=== PATIENT | female | born 1985 | race Caucasian/White ===

== ENCOUNTER 2017-11-02 08:00 | Outpatient (CLI) | payer MEDICAID | END 2017-11-02 23:59 | disposition home or self-care (01) | LOC: LAB.R 08:00 | PROVIDERS: ATTEND Registered Nurse | DX: Z36.9 Encounter for antenatal screening, unspecified (principal) | CPT/HCPCS: 87491; 87591 ==

== ENCOUNTER 2017-12-01 10:33 | Outpatient (CLI) | payer MEDICAID ==
[2017-12-01 11:55] LABS: BASOPHILS % (AUTO) 0.3 %; EOSINOPHILS # (AUTO) 0.1 10^3/uL (0.0-0.7); EOSINOPHILS % (AUTO) 0.8 %; HGB - HEMOGLOBIN 12.4 g/dL (12.0-16.0); LYMPHOCYTES # (AUTO) 1.3 10^3/uL (1.5-3.5); LYMPHOCYTES % (AUTO) 18.9 %; MEAN CORPUSCULAR HEMOGLOBIN 31.7 pg (27.0-31.0); MEAN CORPUSCULAR HGB CONC 35.7 g/dL (32.0-36.0); MEAN CORPUSCULAR VOLUME 88.9 fL (81.0-99.0); MEAN PLATELET VOLUME 8.6 fL (7.9-10.8); MONOCYTES # (AUTO) 0.3 10^3/uL (0.0-1.0); MONOCYTES % (AUTO) 4.4 %; NEUTROPHILS # (AUTO) 5.2 10^3/uL (1.5-6.6); NEUTROPHILS % (AUTO) 75.6 %; PLT - PLATELET COUNT 185 10^3/uL (130-450); RED BLOOD COUNT 3.91 10^6/uL (4.20-5.40); WHITE BLOOD COUNT 6.9 x10^3/uL (4.8-10.8)
[2017-12-01 12:02] LABS: BILIRUBIN,URINE NEGATIVE (NEGATIVE); GLUCOSE, URINE (UA) NEGATIVE (NEGATIVE); KETONES,URINE (UA) NEGATIVE (NEGATIVE); LEUKOCYTE ESTERASE, URINE NEGATIVE (NEGATIVE); NITRITE,URINE NEGATIVE (NEGATIVE); OCCULT BLOOD,URINE NEGATIVE (NEGATIVE); PROTEIN,URINE NEGATIVE (NEGATIVE); UROBILINOGEN,URINE 0.2 (NORMAL) E.U./dL (NORMAL)
[2017-12-01 12:07] LABS: CLARITY,URINE CLEAR (CLEAR)
[2017-12-01 12:22] LABS: BACTERIA,URINE Rare /HPF (None Seen); RBC,URINE 0-5 /HPF (0-5); SQUAMOUS EPITHELIAL CELL,UR RARE Squamous (<= Few)
[2017-12-02 13:28] LABS: HEPATITIS B SURFACE ANTIGEN NON-REACTIVE (NON-REACTIVE)
[2017-12-02 13:51] LABS: HIV AG/AB 4TH GEN NON-REACTIVE (NON-REACTIVE)
[2017-12-02 14:07] LABS: HEPATITIS C ANTIBODY NON-REACTIVE (NON-REACTIVE)
== END 2017-12-01 10:34 | disposition home or self-care (01) ==
LOC: LAB 10:33
PROVIDERS: ATTEND Registered Nurse
DX: Z36.0 Encounter for antenatal screening for chromosomal anomalies (principal)
CPT/HCPCS: 36415; 81001; 81599; 85025; 86592; 86762; 86803; 86850; 86900; 86901; 87340; 87389

== ENCOUNTER 2017-12-31 12:02 | Outpatient (CLI) | payer MEDICAID ==
--- NOTE | 2018-01-04 14:15 | Ultrasound Report ---
DETAILED OB EVALUATION ANATOMIC SCREEN: 12/31/2017 COMPARISON: No comparison. INDICATION: Anatomic screen. TECHNIQUE: Transabdominal evaluation of single intrauterine . LAST MENSTRUAL PERIOD 08/07/2017 Clinical Age --- US Age 20 weeks 4 days EFW Had[place] 346 g EFW% Hadlock --- Heart Rate 137 bpm EDC 05/14/2018 US EDC 05/16/2018 BPD [place] 21 weeks 0 days; Mean mm 49.8 HC [place] 20 weeks 4 days; Mean mm 180.9 AC [place] 20 weeks 4 days; Mean mm 153.2 FL [place] 20 weeks 0 days; Mean mm 32.0 Presentation variable Placental Location anterior Cervical Length 5.6 cm Amniotic Fluid 4.7 cm FINDINGS: Normal 3-vessel cord. The following structures are identified and appear normal: Choroid plexus, lateral ventricles, midline falx, cavum septum pellucidum, cisterna magna, cerebellum, nuchal fold, profile - nasal bones, coronal face, nose-lips, open hands, cardiac situs, left and right ventricular outflow tracts , stomach in situs, heart stomach bladder, diaphragm, kidneys, bladder, cord insertion, spine, upper and lower extremities, leg and foot relationships. There is a left ventricular echogenic intracardiac focus. Four chamber heart appears otherwise normal. Maternal structures: Uterus, cervix long and closed, 5.6 cm. Maternal adnexa grossly unremarkable. IMPRESSION 1. SINGLE VIABLE INTRAUTERINE WITH SIZE CONCORDANT WITH DATES. 2. LEFT VENTRICULAR INTRACARDIAC ECHOGENIC FOCUS. 3. ANATOMIC SCREEN OTHERWISE NORMAL IN APPEARANCE. [facility]
== END 2017-12-31 12:03 | disposition home or self-care (01) ==
LOC: DI 12:02
PROVIDERS: ATTEND Nurse Practitioner Obstetrics & Gynecology
DX: Z36.9 Encounter for antenatal screening, unspecified (principal)
CPT/HCPCS: 76811

== ENCOUNTER 2018-02-16 10:37 | Outpatient (CLI) | payer MEDICAID ==
[2018-02-16 12:33] LABS: HGB - HEMOGLOBIN 11.8 g/dL (12.0-16.0); WHITE BLOOD COUNT 7.5 x10^3/uL (4.8-10.8)
[2018-02-16 14:40] LABS: MEAN CORPUSCULAR HEMOGLOBIN 32.1 pg (27.0-31.0); MEAN CORPUSCULAR HGB CONC 34.5 g/dL (32.0-36.0); RED BLOOD COUNT 3.69 10^6/uL (4.20-5.40); RED CELL DISTRIBUTION WIDTH 12.2 % (12.0-15.0)
== END 2018-02-16 10:38 | disposition home or self-care (01) ==
LOC: LAB 10:37
PROVIDERS: ATTEND Nurse Practitioner Obstetrics & Gynecology
DX: Z36.9 Encounter for antenatal screening, unspecified (principal)
CPT/HCPCS: 36415; 82950; 86850

== ENCOUNTER 2018-04-19 08:00 | Outpatient (CLI) | payer MEDICAID | END 2018-04-19 08:01 | disposition home or self-care (01) | LOC: LAB.R 08:00 | PROVIDERS: ATTEND Registered Nurse | DX: Z34.83 Encounter for supervision of other normal pregnancy, third trimester (principal) | CPT/HCPCS: 87797 ==

== ENCOUNTER 2018-05-07 09:39 | Inpatient (IN) | payer MEDICAID ==
[2018-05-07 10:50] LABS: RUPTURE OF MEMBRANES PLUS POSITIVE (NEGATIVE)
[2018-05-07] MEDS ORDERED: SODIUM CHLORIDE FLUSH 0.9% 10 ML SYRINGE IVP PRN (11:15)
[2018-05-07] MEDS ORDERED: PENICILLIN G POTASSIUM 5,000,000 UNIT in SODIUM CHLORIDE 0.9% MINIBAG 100 ML IV ONE (11:15)
[2018-05-07 12:49] LABS: BASOPHILS % (AUTO) 0.4 %; EOSINOPHILS # (AUTO) 0.1 10^3/uL (0.0-0.7); EOSINOPHILS % (AUTO) 0.7 %; HGB - HEMOGLOBIN 11.5 g/dL (12.0-16.0); LYMPHOCYTES # (AUTO) 1.5 10^3/uL (1.5-3.5); LYMPHOCYTES % (AUTO) 19.4 %; MEAN CORPUSCULAR HEMOGLOBIN 31.3 pg (27.0-31.0); MEAN CORPUSCULAR HGB CONC 33.6 g/dL (32.0-36.0); MEAN CORPUSCULAR VOLUME 93.1 fL (81.0-99.0); MEAN PLATELET VOLUME 9.8 fL (7.9-10.8); MONOCYTES # (AUTO) 0.3 10^3/uL (0.0-1.0); MONOCYTES % (AUTO) 3.9 %; NEUTROPHILS % (AUTO) 75.6 %; PLT - PLATELET COUNT 194 10^3/uL (130-450); RED BLOOD COUNT 3.68 10^6/uL (4.20-5.40)
[2018-05-07] MEDS: LACTATED RINGERS 1,000 ML IV SCH ×2 (13:03→19:10)
[2018-05-07] MEDS ORDERED: fentaNYL 100 MCG/2 ML VIAL IVP PRN (13:05)
[2018-05-07] MEDS ORDERED: ONDANSETRON 4 MG/2 ML VIAL IVP PRN ×2 (13:05→19:19)
[2018-05-07] MEDS ORDERED: OXYTOCIN/SODIUM CHLORIDE 250 ML IV ONE ×2 (13:05→21:42)
--- NOTE | 2018-05-07 13:16 | HISTORY & PHYSICAL EXAMINATION ---
Admit History - Instructions [place]/Slash: -Left hand click circles element as positive or present. -Right hand click slashes element as negative or not present. - Visit Reason Visit Reason: Membranes rupture (at 209905/06/2018) - : 2 Parity: 1 Premature: 0 Ectopic: 0 : 0 Care: positive: [facility] (beginning @ 12 weeks' gestation x11 total visits) Risk/History: positive: Other (history of FAVD) Complications This : positive: Other (GBS positive & now w/ PROM) Smoking Status: Never smoker - Mother's Labs Mother's Blood Type: positive: O Mother's RH: positive: Positive GBS: positive: Group B Strep Positive Rubella Status: positive: Immune - Other Maternal History Other Maternal History: PMH: unremarkable PSH: appendectomy 2013 w/o complications OBhx: FAVD 2009, no complications GYNhx: no hx abnormal pap; last 2015, nl per pt; denies hx STI Sochx: unemployed, to [place], denies DV; denies ETOH/drugs/tobacco Famhx: diabetes (father), endometriosis (sister) Meds/Allgy - Allergies Allergies/Adverse Reactions: Allergies Allergy/AdvReac Type Severity Reaction Status Date / Time iodine AdvReac Hives Verified 05/07/18 10:52 Review of Systems - Constitutional Constitutional: denies: Fatigue, Fever, Chills - Eyes Eyes: denies: Blurred vision - Cardiovascular Cariovascular: denies: Irregular heart rate, Palpitations, Chest pain, Edema - Respiratory Respiratory: denies: Cough, Wheezing, Snoring, SOB at rest, SOB with exertion - Gastrointestinal Gastrointestinal: denies: Abdominal pain, Constipation, Diarrhea, Nausea, Vomiting - Genitourinary Genitourinary: reports: Frequency, Urgency, Incontinence. denies: Dysuria - Musculoskeletal Musculoskeletal: denies: Muscle pain, Back pain, Muscle aches - Integumentary Integumentary: denies: Rash, Pruritis, Lesions - Neurological Neurological: denies: General weakness, Focal weakness, Headache - Psychiatric Psychiatric: denies: Depression, Anxiety - All Other Systems All Other Systems: reports: Other (+LOF, clear, beginning @ 209905/06/2018; did not call until 10:00 05/07/2018, found to be ruptured w/ +ROM plus on arrival; no vaginal bleeding; no contraction discomfort; +FM) Physical - Abdominal Exam Vital Signs: Temp Pulse Resp BP Pulse Ox 37.2 C 86 19 115/64 100 05/07/18 10:29 05/07/18 10:29 05/07/18 10:29 05/07/18 10:05/07/18 10:29 Contraction Frequency (min/apart): rare Contraction Intensity: positive: Mild Uterine Resting Tone: positive: Soft - Monitoring Heart Rate Baseline: 130 Strip Review: positive: Category I - Presentation Presentation: positive: Vertex - Vaginal Exam Membranes: positive: Membranes ruptured Dilation (in cm): 2 Effacement (%): 50 Station: positive: -2 (per RN) Cervical Position: positive: Midposition - Speculum Exam Speculum Exam Performed: positive: No Findings: positive: Gross leak, Nitrazine, Other (ROM plus) - Other Notes Labor Progress Note/Additional Text: Juanis Arambula is a 32 y/o who received care beginning in the early 1st trimester & is today 39 weeks' gestation by 1st trimester US. Her has been complicated only by her hx of FAVD & desire for minimal intervention this & her discomfort & GBS positive status. She presented today w/ a complaint of LOF since 2100 05/06/2018; she did not call until >12 hours of ROM this am & her ROM was confirmed w/ positive ROM plus testing. She was hoping to avoid IOL. She is GBS positive & her antibiotic therapy was not initiated until she arrived >12 hours s/p ROM. She is not in labor. She is dasia only occasionally. We reviewed the implications of her PROM & the recommendation for IOL as well as her unfavorable cervical status. We reviewed options for management & Juanis elects buccal misoprostol @ this time. Full PARQ held & pt has no outstanding questions/concerns. PE: GEN: AAOX3, NAD WA GRAVID FEMALE HEENT: GROSSLY NORMOCEPHALIC, ATRAUMATIC W/O CORRECTIVE LENSES RESP: LUNGS B/L CTA T/O CARDIAC: RRR NLS1S2, NO MURMUR ABD: GRAVID, NT; LIE LONGITUDINAL; PRESENTATION CEPHALIC; EFW 8# : NO LESION, GROSS LEAKAGE OF CAF OB: EFM: BL 130BPM, +ACCELS, NO DECELS, MOD EVE; TOCO: RARE UC; SVE PER RN / -2, POSTERIOR MS: FROM T/O, NO DEFORMITY; NO EDEMA SKIN: WARM, WELL-PERFUSED, C/D/I, NO LESION; +TATTOOS NEURO: NO FOCAL DEFICIT PSYCH: NORMAL MOOD & AFFECT, PLEASANTLY CONVERSANT Plan for Labor - Plan For Labor I expect patient to be DC'd or transferred within 96 hours.: Yes Plan for Labor: 1. Admit, cbc/BB hold 2. Begin misoprostol 50mcg BC q 4 hours 3. limit SVE secondary to PROM; reassess only w/ clear clinical change or urgency 4. Begin IV PCN for GBS prophylaxis, q 4 hours per protocol for IPAP 5. Reviewed analgesia/anesthesia & non-pharmacologic pain management options; PARQ nitrous & pt to utilize as desired; hopes to avoid epidural & hopes to avoid IV analgesia, reviewed @ length 6. Reviewed implications of PROM & need for 48-hr pp stay for evaluation 7. Careful assessment of maternal temperature 8. Anticipatory guidance re: labor process, need for IOL, recommendation re: intervention @ this time 9. Reviewed plan of care w/ pt, partner & RN @ bedside; all in agreement, without concerns.
[2018-05-07] MEDS ORDERED: miSOPROStol 100 MCG TABLET BC SCH ×3 (14:00→22:00)
--- NOTE | 2018-05-07 16:32 | PROVIDER PROGRESS NOTE ---
Labor Progress Note - Uterine Monitoring Uterine Monitoring Mode: positive: External toco Contraction Frequency (min/apart): 2-3 Contraction Intensity: positive: Mild to moderate Uterine Resting Tone: positive: Soft - Monitoring Monitor Mode: positive: External ultrasound Heart Rate Baseline: 135bpm Heart Rate Variability: positive: Moderate (6-25 bmp) Accelerations: positive: Present, 15x15 Decelerations: positive: None - Vaginal Exam Dilation (in cm): 4 Effacement (%): 90 Station: -2 (per RN) Cervical Position: Midposition - Labor Progress Note Labor Progress Note/Additional Text: S: Juanis reports mild cramping w/ uterine contractions, obtaining relief w/ use of jacuzzi tub. & daughter @ bedside, involved. Hoping for minimal intervention. Ongoing leakage of CAF. O: AAOx3, NAD WA gravid female VSS: T 37.1 HR 82 BP 110/63 EFM: BL 135bpm, +accels, no decels, mod tony TOCO: UCs q2-3 min x60 seconds, palp mod SVE: 90/-2 per RN A: 32 y/o @ 39 weeks' EGA by first trimester US, PROM 05/06/2018 @ 2100, for a total ruptured duration of 19.5 hours, afebrile GBS positive s/p 2 doses IV PCN for prophylaxis FHTs cat I Cervical change 3 hours s/p single buccal dose of 50mcg misoprostol Adequate pain control w/o anesthesia/analgesia P: 1. Continue GBS prophylaxis w/ IV PCN per protocol 2. 2nd misoprostol dose @ 4 hour meena if contractions less consistent or cervix remains unchanged (pt refusing Pitocin infusion) 3. Continue hydrotherapy/ambulation/position changes, analgesia/anesthesia available per pt request; pt potentially interested in use of nitrous, RN aware 4. Limit SVE to those clinically indicated, given PROM & increased risk of chorio 5. Ongoing careful monitoring of maternal temperature/FHTs
[2018-05-07] MEDS ORDERED: PENICILLIN G POTASSIUM 2,500,000 UNIT in SODIUM CHLORIDE 0.9% 100ML 100 ML IV SCH (17:00)
[2018-05-07] MEDS ORDERED: SODIUM CHLORIDE FLUSH 0.9% 10 ML SYRINGE IVP SCH (17:00)
[2018-05-07] MEDS ORDERED: ROPIVACAINE 0.2% PF 20 ML AMPULE ONE (18:33)
[2018-05-07] MEDS ORDERED: fentaNYL 100 MCG/2 ML VIAL ONE (18:34)
[2018-05-07] MEDS ORDERED: fent/BUPIV 2 MCG/0.125% 250 ML EP ONE (18:34)
[2018-05-07] MEDS ORDERED: diphenhydrAMINE INJ 50 MG/ML VIAL IVP PRN (19:19)
[2018-05-07] MEDS ORDERED: ePHEDrine 50 MG/ML VIAL IVP PRN (19:19)
[2018-05-07] MEDS ORDERED: LACTATED RINGERS 500 ML IV SCH (19:19)
[2018-05-07] MEDS ORDERED: METOCLOPRAMIDE 10 MG/2 ML VIAL IVP PRN (19:19)
[2018-05-07] MEDS ORDERED: NALBUPHINE 10 MG/ML AMP IVP PRN (19:19)
[2018-05-07] MEDS ORDERED: fent/BUPIV 2 MCG/0.125% 250 ML EP PRN (19:19)
[2018-05-07] MEDS ORDERED: NALOXONE 0.4 MG/ML VIAL IVP PRN (19:19)
--- NOTE | 2018-05-07 21:38 | DELIVERY NOTE ---
Delivery Note - Labor Labor: positive: Other (augmented w/ 1 buccal dose of 50mcg misoprostol) - Delivery Method Delivery Method: positive: Spontaneous vaginal delivery - Cervical Ripening Method Cervical Ripening Method: positive: Misoprostil - Presentation Presentation: positive: Vertex, SONAM - right occiput anterior - Nuchal Cord Nuchal Cord: positive: None - Anesthetic Anesthetic Type: - Amniotic Fluid Description Amniotic Fluid Description: positive: Clear (SROM x24 hours, 13 minutes) - Episiotomy Type Episiotomy Type: positive: None - Laceration Laceration: positive: 2nd degree - Suture Suture Type: positive: Vicryl Suture Size: positive: 2-0 - Delivery Outcome Delivery Outcome: positive: Livebirth - : positive: Placed in direct skin contact with mother, Stimulated, Warmed , [place] used [place] sex: positive: Male - Cord Cord: positive: 3 vessels - Placenta Placenta: positive: Intact, Spontaneous - Estimated Blood Loss Estimated Blood Loss (in cc): 500 - Post Delivery Events Post Delivery Events: positive: No post delivery events - Delivery Comments (Free Text/Narrative) Delivery Comments (Free Text/Narrative): Juanis Grant is a 32y/o [id number] who presented w/ PROM for CAF >12 hours s/p rupture. She received PCN for GBS prophylaxis x3 doses over the course of her hospital stay. She received 1 dose of 50mcg buccal misoprostol for augmentation & entered active labor shortly thereafter (4cm @ 1600). She utilized hydrotherapy & nitrous oxide for pain management & elected epidural anesthesia. FHTs monitored electronically t/o & consistently cat I. She progressed steadily to complete dilatation @ 2103, for a total first stage duration of 5 hours, 3 minutes. She pushed w/ spontaneous urge to achieve of viable male in SONAM position over a 2nd degree perineal laceration @ 2113, for a total 2nd stage duration of 10 minutes & a total ruptured duration of 24 hours, 13 minutes. Afebrile t/o labor. Infant vigorous w/ spontaneous, lusty cry. Placed to maternal abd for drying/stim. Apgars 9/9. Delayed cord clamping until cessation of pulsation, then cord clamped x2 by CNM, cut by FOB, 3VC noted, cord blood obtained. Active management of 3rd stage w/ Pitocin in IV fluids. Large gush of blood preceded delivery of placenta & 800mcg misoprostol buccally administered as a result. Placenta del spontaneously & intact, Luiza , @ 2117, for a total 3rd stage duration of 5 minutes. FF @ U. Vagina & perineum inspected & 2nd degree perineal laceration noted. Repaired under epidural anesthesia w/ 2-0 vicryl. Hemostatic & well-approximated. EBL 500mL. Mother & infant stable. Weight pending. Mother reports previously successful experience & intends to breastfeed her son, Jarad. nuzzling @ breast w/in 20 minutes of delivery.
[2018-05-07] MEDS ORDERED: MAGNESIUM HYDROXIDE 2,400 MG/30 ML UDC PO PRN (21:42)
[2018-05-07] MEDS ORDERED: HYDROCORTISONE 1% CREAM 28 GM TUBE PR PRN (21:42)
[2018-05-07] MEDS ORDERED: WITCH HAZEL/GLYCERIN 1 EACH MED..PAD TOP PRN (21:42)
[2018-05-07] MEDS ORDERED: miSOPROStol 200 MCG TABLET SL SCH (21:43)
[2018-05-07] MEDS ORDERED: OXYTOCIN/SODIUM CHLORIDE 500 ML IV ONE (21:53)
[2018-05-07] MEDS ORDERED: LACTATED RINGERS 1,000 ML IV ONE ×2 (22:06→22:51)
[2018-05-07] MEDS: ACETAMINOPHEN 500 MG TABLET PO SCH (22:14)
--- NOTE | 2018-05-07 22:15 | PROVIDER PROGRESS NOTE ---
Subjective - Prog Note Date Prog Note Date: 05/07/18 Prog Note Time: 22:15 - Subjective Pt reports feeling: Worse (Feeling "odd") Objective - Vital Signs/Intake & Output Reviewed Vital Signs: Yes Intake & Output: Intake & Output 05/04/18 05/05/18 05/06/18 05/07/18 23:59 23:59 23:59 23:59 Intake Total 1117.5 Output Total 1050 Balance 67.5 - Objective General Appearance: positive: Alert, Moderate distress, Anxious Eyes Bilateral: positive: Normal inspection, PERRL, EOMI ENT: positive: Other (se-oral cyanosis) Respiratory: positive: Chest non-tender, No respiratory distress, Breath sounds nml. negative: Wheezes, Rales, Rhonchi Cardiovascular: positive: No murmur, No gallop, Tachycardia. negative: Friction rub Peripheral Pulses: 2+ Radial (R), 2+ Radial (L), 2+ Dorsalis pedis (R), 2+ Dorsalis pedis (L), 2+ Posterior tibialis (R), 2+ Posterior tibialis (L) Abdomen: positive: Non-tender, Other (FF @ U) Skin: positive: Cyanosis (se-oral), Pallor Neurologic/Psychiatric: positive: Oriented x3, CN's nml (2-12), Motor nml, Sensation nml, Mood/affect nml, Other (anxiety) - Lab Results Fish Bones: 05/07/18 12:32 Other Labs: Lab Results x24hrs 05/07/18 05/07/18 Range/Units 12:32 10:20 WBC 8.0 (4.8-10.8) x10^3/uL RBC 3.68 L (4.20-5.40) 10^6/uL Hgb 11.5 L (12.0-16.0) g/dL Hct 34.2 L (37.0-47.0) % MCV 93.1 (81.0-99.0) fL MCH 31.3 H (27.0-31.0) pg MCHC 33.6 (32.0-36.0) g/dL RDW 13.0 (12.0-15.0) % Plt Count 194 (130-450) 10^3/uL MPV 9.8 (7.9-10.8) fL Neut # (Auto) 6.0 (1.5-6.6) 10^3/uL Lymph # (Auto) 1.5 (1.5-3.5) 10^3/uL [place] # (Auto) 0.3 (0.0-1.0) 10^3/uL Eos # (Auto) 0.1 (0.0-0.7) 10^3/uL Baso # (Auto) 0.0 (0.0-0.1) 10^3/uL Absolute Nucleated RBC 0.01 x10^3/uL Nucleated RBC % 0.1 /100WBC Membranes Rupture POSITIVE A (NEGATIVE) Assessment/Plan - Problem List (1) (normal spontaneous vaginal delivery) Impression: Called to see patient secondary to sudden desaturation to SPO2 70% w/ BP 80s/ 30s & HR 130bpm s/p w/ sudden EBL 500mL w/ delivery of placenta. Patient stable s/p 1 dose 800mcg buccal misoprostol, holding infant w/ sudden decompensation of vital signs, now with intense rigors & inability to determine accurate BP secondary to severe rigors. Pt alert & appropriately responsive, denies SOB, denies CP, feeling very anxious. PE notable only for se-oral cyanosis & pallor, lungs b/l cta t/o; tachycardia but regular rhythm, no murmur/ gallop/rub; peripheral pulses +2, minimal b/l LE edema; FF @ U, GUILLE firm & clear of clot, minimal lochia rubra. No change in patient's LOC. 1. Reviewed possible/probable etiologies of symptoms, discussed w/ anesthesia, who presented to the bedside for evaluation of patient 2. demerol 12.5mg IVP to decrease rigors, which are likely secondary to adverse effect of misoprostol administration in order to ensure accuracy of BP evaluation 3. Chest CT to r/o PE 4. ABG/CBC/CMP stat 5. Luiza hugger & antipyretics to diminish rigors & allow for accuracy of BP assessment 6. Ongoing O2 administration via non-rebreather mask, ongoing IV bolus LR 7. Ongoing careful evaluation of vaginal bleeding, which @ present is negligible 8. Reviewed clinical scenario w/ Raiza Light CRNA, & Zarina Fritz DO, who concur w/ current plan of care
[2018-05-07] MEDS ORDERED: MEPERIDINE 50 MG/ML SYRINGE IVP PRN (22:18)
[2018-05-07 22:23] LABS: BASOPHILS % (AUTO) 0.1 %; EOSINOPHILS % (AUTO) 0.1 %; HGB - HEMOGLOBIN 12.2 g/dL (12.0-16.0); LYMPHOCYTES % (AUTO) 7.2 %; MEAN CORPUSCULAR HGB CONC 32.3 g/dL (32.0-36.0); MEAN CORPUSCULAR VOLUME 95.9 fL (81.0-99.0); MEAN PLATELET VOLUME 9.6 fL (7.9-10.8); MONOCYTES % (AUTO) 3.5 %; NEUTROPHILS % (AUTO) 89.1 %; PLT - PLATELET COUNT 232 10^3/uL (130-450); RED BLOOD COUNT 3.92 10^6/uL (4.20-5.40)
[2018-05-07 22:25] LABS: ABNORMAL LYMPHS % (MANUAL) 0 %
[2018-05-07] MEDS ORDERED: MEPERIDINE 50 MG/ML SYRINGE ONE (22:28)
[2018-05-07 22:38] LABS: ALBUMIN 3.1 g/dL (3.2-5.5); ALBUMIN/GLOBULIN RATIO 0.8 (1.0-2.2); BILIRUBIN,TOTAL 0.9 mg/dL (0.2-1.0); CALCIUM 8.8 mg/dL (8.5-10.3); CREATININE 0.9 mg/dL (0.4-1.0); TOTAL PROTEIN 7.1 g/dL (6.7-8.2)
[2018-05-07 22:39] LABS: BAND NEUTROPHILS % (MANUAL) 4 %; DIFFERENTIAL COMMENT MANUAL DIFFERENTIAL; LYMPHOCYTES # (MANUAL) 1.6 10^3/uL (1.5-3.5); LYMPHOCYTES % (MANUAL) 7 %; MONOCYTES # (MANUAL) 0.9 10^3/uL (0.0-1.0); NEUTROPHILS # (MANUAL) 20.5 10^3/uL (1.5-6.6); NEUTROPHILS % (MANUAL) 85 %; PLATELET ESTIMATE, MANUAL NORMAL (130-450,000) (NORMAL); PLATELET MORPHOLOGY NORMAL APPEARANCE (NORMAL); RBC MORPHOLOGY (MULTIPLE) NORMAL APPEARANCE (NORMAL)
--- NOTE | 2018-05-07 22:54 | PROVIDER PROGRESS NOTE ---
Subjective - Prog Note Date Prog Note Date: 05/07/18 Prog Note Time: 23:00 - Subjective Pt reports feeling: Improved Subjective: Juanis denies pain or SOB. No dyspnea. She is breathing w/o difficulty on RA. She no longer feels anxious, although she continues to have some rigors. She does report that she feels significantly warmer than she did before. Objective - Vital Signs/Intake & Output Reviewed Vital Signs: Yes Vital Signs: T 100.5 po w/ Luiza hugger in place (s/p misoprostol administration); HR 112bpm, RR 20, BP 129/63 Intake & Output: Intake & Output 05/04/18 05/05/18 05/06/18 05/07/18 23:59 23:59 23:59 23:59 Intake Total 1117.5 Output Total 1050 Balance 67.5 - Objective General Appearance: positive: No acute distress, Alert Eyes Bilateral: positive: Normal inspection, PERRL, EOMI Respiratory: positive: Chest non-tender, No respiratory distress, Breath sounds nml. negative: Wheezes, Rales, Rhonchi Cardiovascular: positive: Tachycardia, Other (regular rhythm). negative: No murmur, No gallop, Friction rub Peripheral Pulses: 2+ Radial (R), 2+ Radial (L), 2+ Dorsalis pedis (R), 2+ Dorsalis pedis (L) Abdomen: positive: Non-tender, Other (FF @ U) Skin: positive: Color nml, No rash, Warm, Dry. negative: Cyanosis, Diaphoresis Extremities: positive: Non-tender, Full ROM, Nml appearance, Pedal edema (trace , non-pitting) Neurologic/Psychiatric: positive: Oriented x3, CN's nml (2-12), Motor nml, Sensation nml, Mood/affect nml - Lab Results Fish Bones: 05/07/18 12:32 05/07/18 10:15 Other Labs: Lab Results x24hrs 05/07/18 05/07/18 05/07/18 Range/Units 12:32 10:20 10:15 WBC 8.0 (4.8-10.8) x10^3/uL RBC 3.68 L (4.20-5.40) 10^6/uL Hgb 11.5 L (12.0-16.0) g/dL Hct 34.2 L (37.0-47.0) % MCV 93.1 (81.0-99.0) fL MCH 31.3 H (27.0-31.0) pg MCHC 33.6 (32.0-36.0) g/dL RDW 13.0 (12.0-15.0) % Plt Count 194 (130-450) 10^3/uL MPV 9.8 (7.9-10.8) fL Neut # (Auto) 6.0 Lymph # (Auto) 1.5 [place] # (Auto) 0.3 Eos # (Auto) 0.1 Baso # (Auto) 0.0 Absolute Nucleated RBC 0.01 Total Counted Band Neuts % (Manual) (0 - 10) % Abnorm Lymph % (Manual) % Nucleated RBC % 0.1 Neutrophils # (Manual) (1.5-6.6) 10^3/uL Lymphocytes # (Manual) (1.5-3.5) 10^3/uL Monocytes # (Manual) (0.0-1.0) 10^3/uL Eosinophils # (Manual) (0-0.7) 10^3/uL Basophils # (Manual) (0-0.1) 10^3/uL Differential Comment Manual Slide Review WBC Morphology (NORMAL) Platelet Estimate (NORMAL) Platelet Morphology (NORMAL) RBC Morph Micro Appear (NORMAL) Sodium 135 (135-145) mmol/L Potassium 4.1 (3.5-5.0) mmol/L Chloride 102 (101-111) mmol/L Carbon Dioxide 19 L (21-32) mmol/L Anion Gap 14.0 H (6-13) BUN 9 (6-20) mg/dL Creatinine 0.9 (0.4-1.0) mg/dL Estimated GFR (MDRD) 72 L (>89) Glucose 104 H (70-100) mg/dL Calcium 8.8 (8.5-10.3) mg/dL Total Bilirubin 0.9 (0.2-1.0) mg/dL AST 37 (10-42) IU/L ALT 27 (10-60) IU/L Alkaline Phosphatase 181 H (42-121) IU/L Total Protein 7.1 (6.7-8.2) g/dL Albumin 3.1 L (3.2-5.5) g/dL Globulin 4.0 (2.1-4.2) g/dL Albumin/Globulin Ratio 0.8 L (1.0-2.2) Membranes Rupture POSITIVE A (NEGATIVE) 05/07/18 Range/Units 10:15 WBC 23.0 H (4.8-10.8) x10^3/uL RBC 3.92 L (4.20-5.40) 10^6/uL Hgb 12.2 (12.0-16.0) g/dL Hct 37.6 (37.0-47.0) % MCV 95.9 (81.0-99.0) fL MCH 31.0 (27.0-31.0) pg MCHC 32.3 (32.0-36.0) g/dL RDW 13.0 (12.0-15.0) % Plt Count 232 (130-450) 10^3/uL MPV 9.6 (7.9-10.8) fL Neut # (Auto) Not Reportable Lymph # (Auto) Not Reportable [place] # (Auto) Not Reportable Eos # (Auto) Not Reportable Baso # (Auto) Not Reportable Absolute Nucleated RBC Not Reportable Total Counted 100 Band Neuts % (Manual) 4 (0 - 10) % Abnorm Lymph % (Manual) 0 % Nucleated RBC % Not Reportable Neutrophils # (Manual) 20.5 H (1.5-6.6) 10^3/uL Lymphocytes # (Manual) 1.6 (1.5-3.5) 10^3/uL Monocytes # (Manual) 0.9 (0.0-1.0) 10^3/uL Eosinophils # (Manual) 0.0 (0-0.7) 10^3/uL Basophils # (Manual) 0.0 (0-0.1) 10^3/uL Differential Comment MANUAL DIFFERENTIAL Manual Slide Review Indicated WBC Morphology NORMAL APPEARANCE (NORMAL) Platelet Estimate NORMAL (130-450,000) (NORMAL) Platelet Morphology NORMAL APPEARANCE (NORMAL) RBC Morph Micro Appear NORMAL APPEARANCE (NORMAL) Sodium (135-145) mmol/L Potassium (3.5-5.0) mmol/L Chloride (101-111) mmol/L Carbon Dioxide (21-32) mmol/L Anion Gap (6-13) BUN (6-20) mg/dL Creatinine (0.4-1.0) mg/dL Estimated GFR (MDRD) (>89) Glucose (70-100) mg/dL Calcium (8.5-10.3) mg/dL Total Bilirubin (0.2-1.0) mg/dL AST (10-42) IU/L ALT (10-60) IU/L Alkaline Phosphatase (42-121) IU/L Total Protein (6.7-8.2) g/dL Albumin (3.2-5.5) g/dL Globulin (2.1-4.2) g/dL Albumin/Globulin Ratio (1.0-2.2) Membranes Rupture (NEGATIVE) - Diagnostic Imaging Diagnostic Imaging Results: positive: Other (chest angiography for PE study ordered stat; spoke w/ Javier--radiologist rehabilitation physician to call stat report to my number) Diagnostic Imaging Comments: pending - Other Results/Comments Other Results/Comments: RT unable to obtain ABG Assessment/Plan - Problem List (2) Oxygen desaturation Impression: SPO2 resolved & now 100% on RA VS stabilizing Febrile w/ leukocystosis, PROM >24 hours, s/p misoprostol administration CBC/CMP otherwise unremarkable Clinical picture improving P: 1. Chest angiography for PE workup--discussed w/ Javier radiologist--they are to call stat report directly to me 2. unable to obtain ABG, will cx for now, given degree of improvement 3. Ongoing careful VS monitoring 4. Ongoing maintenance fluids @ 150mL/hr; establish second large-bore IV access site for angiography 5. Treat as per ACOG guidelines for presumed triple I, given maternal tachycardia, fever, leukocytosis: will begin ampicillin 2g q 6 hours x24 hours and gentamicin 5mg/kg x1; blood cx of limited utility secondary to IV abx therapy t/o the day today; placental pathology pending 6. Reviewed plan of care with patient, partner & RN @ bedside; Dr. Catrina DO, apprised of clinical scenario & plan 7. Anticipate minimum 48-hr s/p delivery hospital stay
[2018-05-07] MEDS: IBUPROFEN 800 MG TABLET PO SCH (23:01)
[2018-05-07] MEDS ORDERED: SODIUM CHLORIDE FLUSH 0.9% 10 ML SYRINGE ONE (23:08)
[2018-05-08] MEDS: AMPICILLIN 2 GM in SODIUM CHLORIDE 0.9% MINIBAG 100 ML IV SCH ×6 (00:20→23:48)
[2018-05-08] MEDS ORDERED: SODIUM CHLORIDE 0.9% MINIBAG 100 ML IV ONE (00:27)
[2018-05-08] MEDS: SODIUM CHLORIDE 0.9% IV SCH (01:24)
[2018-05-08] MEDS: GENTAMICIN IV SCH (01:24)
[2018-05-08] MEDS: LACTATED RINGERS 1,000 ML IV SCH ×3 (01:24→11:13)
--- NOTE | 2018-05-08 02:29 | CT Report ---
Procedure Date: 05/08/2018 Accession Number: [id number] / [id number] Procedure: CT - Chest W/O CPT Code: FULL RESULT: EXAM: CT CHEST EXAM DATE: 05/08/2018 12:12 AM. CLINICAL HISTORY: Dyspnea w/ oxygen desaturation. COMPARISONS: None. TECHNIQUE: Routine helical CT imaging was performed through the chest. IV contrast: None. Reconstructions: Coronal and sagittal. In accordance with CT protocol optimization, one or more of the following dose reduction techniques were utilized for this exam: automated exposure control, adjustment of mA and/or KV based on patient size, or use of iterative reconstructive technique. FINDINGS: Lungs/Pleura: No alveolar consolidation or pleural effusion seen. No pneumothorax. Mediastinum: Heart size is normal. No lymphadenopathy seen. No mediastinal hematoma. Bones: Unremarkable. Visualized Abdomen: The kidneys are partially imaged. Mild hydronephrosis suspected bilaterally. Other: None. IMPRESSION: 1. No acute abnormality seen in the chest. 2. Suspect mild bilateral hydronephrosis. RADIA
[2018-05-08] MEDS: IBUPROFEN 800 MG TABLET PO SCH ×4 (03:15→23:47)
[2018-05-08] MEDS: ACETAMINOPHEN 500 MG TABLET PO SCH ×3 (05:34→21:39)
[2018-05-08] MEDS: DOCUSATE SODIUM 100 MG CAPSULE PO SCH ×2 (10:03→23:47)
[2018-05-08] MEDS: HYDROCORTISONE/PRAMOXINE 10 GM PR PRN (11:58)
--- NOTE | 2018-05-08 12:30 | PROVIDER PROGRESS NOTE ---
Subjective - Prog Note Date Prog Note Date: 05/08/18 Prog Note Time: 12:25 - Subjective Pt reports feeling: Improved Subjective: Juanis reports no dyspnea or SOB. She does not have anxiety this morning. She feels her temperature has regulated well. She is ambulating & voiding w/o difficulty & w/o incontinence. She has had a BM w/o difficulty. She reports moderate lochia rubra w/o significant clotting. She denies discomfort w/ dorsiflexion of her feet & has no CP. She reports increased abdominal pain & cramping & reports that pumping her breasts feels agonizing because of her uterine discomfort. She reports fundal checks are also excruciating for her. She requests additional pain medication. Objective - Vital Signs/Intake & Output Reviewed Vital Signs: Yes Vital Signs: Vital Signs x48h Temp Pulse Pulse Resp BP BP Pulse Ox 05/08/18 11:53 36.4 C L 51 L 19 113/71 100 05/08/18 09:40 36.6 C 69 17 114/64 100 05/08/18 07:45 36.4 C L 68 18 115/76 100 05/08/18 06:34 37.0 C 74 16 105/52 L 97 05/08/18 05:01 78 105/52 L 05/08/18 04:47 87 107/48 L 05/08/18 04:30 37.9 C H 76 20 118/56 L 99 Intake & Output: Intake & Output 05/05/18 05/06/18 05/07/18 05/08/18 23:59 23:59 23:59 23:59 Intake Total 1117.5 1694.9 Output Total 2225 1725 Balance -1107.5 -30.1 - Objective General Appearance: positive: No acute distress, Alert Eyes Bilateral: positive: Normal inspection, PERRL, EOMI Respiratory: positive: Chest non-tender, No respiratory distress, Breath sounds nml Cardiovascular: positive: Regular rate & rhythm, No murmur, No gallop Peripheral Pulses: 2+ Radial (R), 2+ Radial (L), 2+ Dorsalis pedis (R), 2+ Dorsalis pedis (L) Abdomen: positive: Tenderness (fundus exquisitely tender w/ palpation, FF @ U) Skin: positive: Color nml, No rash, Warm, Dry. negative: Cyanosis, Pallor Extremities: positive: Non-tender, Full ROM, Nml appearance, Pedal edema (trace b/l). negative: Calf tenderness, Kory's sign/cords Neurologic/Psychiatric: positive: Oriented x3, CN's nml (2-12), Motor nml, Sensation nml, Mood/affect nml - Lab Results Fish Bones: 05/07/18 22:15 05/07/18 22:15 Other Labs: Lab Results x24hrs 05/07/18 05/07/18 05/07/18 Range/Units 22:15 22:15 12:32 WBC 23.0 H 8.0 (4.8-10.8) x10^3/uL RBC 3.92 L 3.68 L (4.20-5.40) 10^6/uL Hgb 12.2 11.5 L (12.0-16.0) g/dL Hct 37.6 34.2 L (37.0-47.0) % MCV 95.9 93.1 (81.0-99.0) fL MCH 31.0 31.3 H (27.0-31.0) pg MCHC 32.3 33.6 (32.0-36.0) g/dL RDW 13.0 13.0 (12.0-15.0) % Plt Count 232 194 (130-450) 10^3/uL MPV 9.6 9.8 (7.9-10.8) fL Neut # (Auto) 6.0 Lymph # (Auto) 1.5 [place] # (Auto) 0.3 Eos # (Auto) 0.1 Baso # (Auto) 0.0 Absolute Nucleated RBC 0.01 Total Counted 100 Band Neuts % (Manual) 4 (0 - 10) % Abnorm Lymph % (Manual) 0 % Nucleated RBC % 0.1 Neutrophils # (Manual) 20.5 H (1.5-6.6) 10^3/uL Lymphocytes # (Manual) 1.6 (1.5-3.5) 10^3/uL Monocytes # (Manual) 0.9 (0.0-1.0) 10^3/uL Eosinophils # (Manual) 0.0 (0-0.7) 10^3/uL Basophils # (Manual) 0.0 (0-0.1) 10^3/uL Differential Comment MANUAL DIFFERENTIAL Manual Slide Review Indicated WBC Morphology NORMAL APPEARANCE (NORMAL) Platelet Estimate NORMAL (130-450,000) (NORMAL) Platelet Morphology NORMAL APPEARANCE (NORMAL) RBC Morph Micro Appear NORMAL APPEARANCE (NORMAL) Sodium 135 (135-145) mmol/L Potassium 4.1 (3.5-5.0) mmol/L Chloride 102 (101-111) mmol/L Carbon Dioxide 19 L (21-32) mmol/L Anion Gap 14.0 H (6-13) BUN 9 (6-20) mg/dL Creatinine 0.9 (0.4-1.0) mg/dL Estimated GFR (MDRD) 72 L (>89) Glucose 104 H (70-100) mg/dL Calcium 8.8 (8.5-10.3) mg/dL Total Bilirubin 0.9 (0.2-1.0) mg/dL AST 37 (10-42) IU/L ALT 27 (10-60) IU/L Alkaline Phosphatase 181 H (42-121) IU/L Total Protein 7.1 (6.7-8.2) g/dL Albumin 3.1 L (3.2-5.5) g/dL Globulin 4.0 (2.1-4.2) g/dL Albumin/Globulin Ratio 0.8 L (1.0-2.2) /20/18 Range/Units 10:15 WBC (4.8-10.8) x10^3/uL RBC (4.20-5.40) 10^6/uL Hgb (12.0-16.0) g/dL Hct (37.0-47.0) % MCV (81.0-99.0) fL MCH (27.0-31.0) pg MCHC (32.0-36.0) g/dL RDW (12.0-15.0) % Plt Count (130-450) 10^3/uL MPV (7.9-10.8) fL Neut # (Auto) Not Reportable Lymph # (Auto) Not Reportable [place] # (Auto) Not Reportable Eos # (Auto) Not Reportable Baso # (Auto) Not Reportable Absolute Nucleated RBC Not Reportable Total Counted Band Neuts % (Manual) (0 - 10) % Abnorm Lymph % (Manual) % Nucleated RBC % Not Reportable Neutrophils # (Manual) (1.5-6.6) 10^3/uL Lymphocytes # (Manual) (1.5-3.5) 10^3/uL Monocytes # (Manual) (0.0-1.0) 10^3/uL Eosinophils # (Manual) (0-0.7) 10^3/uL Basophils # (Manual) (0-0.1) 10^3/uL Differential Comment Manual Slide Review WBC Morphology (NORMAL) Platelet Estimate (NORMAL) Platelet Morphology (NORMAL) RBC Morph Micro Appear (NORMAL) Sodium (135-145) mmol/L Potassium (3.5-5.0) mmol/L Chloride (101-111) mmol/L Carbon Dioxide (21-32) mmol/L Anion Gap (6-13) BUN (6-20) mg/dL Creatinine (0.4-1.0) mg/dL Estimated GFR (MDRD) (>89) Glucose (70-100) mg/dL Calcium (8.5-10.3) mg/dL Total Bilirubin (0.2-1.0) mg/dL AST (10-42) IU/L ALT (10-60) IU/L Alkaline Phosphatase (42-121) IU/L Total Protein (6.7-8.2) g/dL Albumin (3.2-5.5) g/dL Globulin (2.1-4.2) g/dL Albumin/Globulin Ratio (1.0-2.2) - Diagnostic Imaging Diagnostic Imaging Results: positive: Final report reviewed Diagnostic Imaging Comments: Chest CT WNL, does not demonstrate any pulmonary pathology ABX Reporting Has patient been on IV antibiotics over the past 48 hours?: Yes Assessment/Plan - Problem List (1) (normal spontaneous vaginal delivery) Impression: 32 y/o s/p 7/20 w/ 2nd degree perineal laceration w/ repair, s/p PROM x24 hours, GBS positive w/ antibiotic initiation delayed secondary to pt non- presentation >13 hours s/p ROM Leukocytosis PPD #1 w/ normal uterine involution Inadequate pain management w/ non-opioid analgesia w/ some challenges secondary to infant sleepiness VS previously concerning secondary to oxygen desaturation, tachycardia & hypotension, now consistently WNL, afebrile Broad-spectrum antibiotic therapy initiated s/p delivery secondary to concerns re: maternal sepsis Plan: 1. Continue routine pp care 2. Add oxycodone 5mg po q 4 hrs PRN severe pain 3. Repeat CBC to ensure no persistent or worsening leukocytosis 4. Continue Amp/Gent x24 hours 5. blood cx pending, placental pathology pending 6. Continue frequent VS evaluations 7. Reviewed warning s/sx w/ pt & probable etiology of her previous symptoms as well as need for ongoing intervention/evaluation 8. support provided & to continue in ongoing fashion 9. Anticipate hospital stay through 48 hours s/p delivery @ minimum (2) Oxygen desaturation Impression: Resolved w/ no evidence of PE, no dyspnea, no SOB
[2018-05-08 13:06] LABS: BASOPHILS % (AUTO) 0.2 %; EOSINOPHILS % (AUTO) 0.2 %; HGB - HEMOGLOBIN 11.7 g/dL (12.0-16.0); LYMPHOCYTES % (AUTO) 17.6 %; MEAN CORPUSCULAR HEMOGLOBIN 31.4 pg (27.0-31.0); MEAN CORPUSCULAR HGB CONC 33.7 g/dL (32.0-36.0); MEAN PLATELET VOLUME 9.5 fL (7.9-10.8); MONOCYTES # (AUTO) 0.6 10^3/uL (0.0-1.0); MONOCYTES % (AUTO) 5.4 %; NEUTROPHILS # (AUTO) 8.8 10^3/uL (1.5-6.6); NEUTROPHILS % (AUTO) 76.6 %; PLT - PLATELET COUNT 180 10^3/uL (130-450); RED BLOOD COUNT 3.72 10^6/uL (4.20-5.40); RED CELL DISTRIBUTION WIDTH 12.8 % (12.0-15.0); WHITE BLOOD COUNT 11.5 x10^3/uL (4.8-10.8)
[2018-05-08] MEDS: oxyCODONE 5 MG TABLET PO PRN ×3 (13:10→21:39)
[2018-05-08] MEDS ORDERED: miSOPROStol 200 MCG TABLET ONE (19:54)
[2018-05-09] MEDS: SODIUM CHLORIDE 0.9% IV SCH (01:09)
[2018-05-09] MEDS: GENTAMICIN IV SCH (01:09)
[2018-05-09] MEDS: AMPICILLIN 2 GM in SODIUM CHLORIDE 0.9% MINIBAG 100 ML IV SCH ×2 (05:54→12:46)
[2018-05-09] MEDS: ACETAMINOPHEN 500 MG TABLET PO SCH ×3 (05:56→22:02)
[2018-05-09] MEDS: IBUPROFEN 800 MG TABLET PO SCH ×3 (05:57→18:43)
[2018-05-09] MEDS: DOCUSATE SODIUM 100 MG CAPSULE PO SCH ×2 (09:14→20:44)
[2018-05-09] MEDS ORDERED: SODIUM CHLORIDE FLUSH 0.9% 10 ML SYRINGE ONE ×2 (12:52→14:08)
--- NOTE | 2018-05-09 16:43 | PROVIDER PROGRESS NOTE ---
Subjective - Prog Note Date Prog Note Date: 05/09/18 Prog Note Time: 16:30 - Subjective Pt reports feeling: Improved Subjective: Juanis is doing well. Her pain is much better controlled w/ the addition of oxycodone PRN & she feels that she is having less pain overall. She is ambulating & voiding w/o difficulty. She is passing flatus & tolerating po intake. She is w/ some nipple discomfort. Her mood is good & she is feeling generally significantly better. She denies dyspnea/SOB/anxiety. She has had no fever/chills. She does not plan to contracept & does not plan to return to work. She has a hx of anxiety & depression w/ some pp depression s/ p delivery of her daughter but declines prophylaxis. Objective - Vital Signs/Intake & Output Reviewed Vital Signs: Yes Vital Signs: Vital Signs x48h Temp Pulse Resp BP Pulse Ox 05/09/18 12:48 36.7 C 63 18 107/68 05/09/18 11:05 36.8 C 62 15 114/66 99 Intake & Output: Intake & Output 05/06/18 05/07/18 05/08/18 05/09/18 23:59 23:59 23:59 23:59 Intake Total 1117.5 2894.9 680 Output Total 2225 4175 Balance -1107.5 -1280.1 680 - Objective General Appearance: positive: No acute distress, Alert Eyes Bilateral: positive: Normal inspection, PERRL, EOMI Respiratory: positive: Chest non-tender, No respiratory distress, Breath sounds nml Cardiovascular: positive: Regular rate & rhythm, No murmur, No gallop Abdomen: positive: Non-tender, Other (FF U-1) Skin: positive: Color nml, No rash, Warm, Dry. negative: Cyanosis Extremities: positive: Non-tender, Full ROM, Nml appearance, No pedal edema. negative: Calf tenderness, Kory's sign/cords Neurologic/Psychiatric: positive: Oriented x3, CN's nml (2-12), Motor nml, Sensation nml, Mood/affect nml Comments/Other: Breasts b/l s, nt; nipples b/l intact & everted, colostrum readily expressible; perineum w/ sutures intact, well-approximated, no erythema/edema/ecchymosis; minimal lochia rubra - Lab Results Fish Bones: 05/08/18 13:00 05/07/18 22:15 ABX Reporting Has patient been on IV antibiotics over the past 48 hours?: Yes Assessment/Plan - Problem List (1) (normal spontaneous vaginal delivery) Impression: 32 y/o s/p 05/07 w/ 2nd degree laceration s/p episode of oxygen desaturation & respiratory distress, no evidence of pulmonary pathology, presumed sepsis, s/p abx therapy w/ resolution of leukocytosis, VSS, afebrile x>24 hours w/ some nipple discomfort normal uterine involution minimal lochia rubra pain well-controlled w/ oxycodone & ibuprofen/acetaminophen hx pp depression Plan: 1. continue routine care 2. support provided & to continue in ongoing fashion 3. fluconazole 100mg IV x1 now, then d/c IV--PARQ held, reviewed indication-- prophylaxis w/ prolonged IV broad-spectrum abx, pt desires 4. kpad to hips PRN discomfort, as pt articulates some intermittent hip discomfort 5. Blood cx still pending 6. Reviewed likely etiology of immediate pp respiratory distress & warning s/sx 7. Reviewed pp depression prophylaxis, which pt declines, reviewed warning s/sx , prevention strategies 8. Anticipate d/c home PPD#3 if stable (2) Oxygen desaturation Impression: Resolved
[2018-05-09] MEDS: oxyCODONE 5 MG TABLET PO PRN (16:55)
[2018-05-09] MEDS: FLUCONAZOLE 200 MG/100 ML 100 ML IV SCH (17:44)
[2018-05-10] MEDS ORDERED: SODIUM CHLORIDE FLUSH 0.9% 10 ML SYRINGE ONE (00:15)
[2018-05-10] MEDS ORDERED: SODIUM CHLORIDE 0.9% IV SCH (01:00)
[2018-05-10] MEDS ORDERED: GENTAMICIN IV SCH (01:00)
[2018-05-10] MEDS: IBUPROFEN 800 MG TABLET PO SCH ×4 (01:06→20:06)
[2018-05-10] MEDS: ACETAMINOPHEN 500 MG TABLET PO SCH ×3 (06:28→22:01)
[2018-05-10] MEDS: oxyCODONE 5 MG TABLET PO PRN ×2 (08:18→12:09)
[2018-05-10] MEDS: DOCUSATE SODIUM 100 MG CAPSULE PO SCH (08:18)
--- NOTE | 2018-05-10 08:51 | PROVIDER PROGRESS NOTE ---
Subjective - Subjective Subjective: 05/10/2018, PPD#3 S: Bonding well with baby. without difficulty and reports her milk has come in. This has increased her cramping with . Reports cramping occurs only with and between feeds she denies uterine discomfort/cramping. Continuing to experience right hip discomfort and intermittently applies K-pad for minimal relief. Reports perineum is slightly sore but manageable. Bleeding continues to decrease. Denies SOB or anxiety. O: BP 115/58, RR 17, HR 74, T 36.8. Heart RRR w/o M/G/R, lungs CTAB, abdomen soft and mildly tender with fundus firm at U-1. Bilateral LE's 1+ pitting edema. Hgb 11.5 -->37.6-->34.6 Hct 34.2 --> 37.6-->34.6 PLT 194-->232-->180 Blood culture negative A: 32yo -->P2 PPD#2 s/p of viable male infant. S/p episode of sudden O2 desaturation and respiratory distress. S/p abx therapy w/ resolution of leukocytosis. Afebrile P: Continue routine care. Infant under bili-lights Discharge home today on PPD#3 Will hold discharge until tomorrow if baby not discharged. Objective - Vital Signs/Intake & Output Vital Signs: Vital Signs x48h Temp Pulse Resp BP 05/10/18 04:40 36.8 C 74 17 114/58 L 05/10/18 01:15 36.6 C 66 16 114/76 Intake & Output: Intake & Output 05/07/18 05/08/18 05/09/18 05/10/18 23:59 23:59 23:59 23:59 Intake Total 1117.5 2894.9 680 Output Total 8579 4175 Balance -1107.5 -1280.1 680 - Lab Results Fish Bones: 05/08/18 13:00 05/07/18 22:15
[2018-05-10] MEDS: FLUCONAZOLE 200 MG/100 ML 100 ML IV SCH (09:14)
[2018-05-10] MEDS: HYDROCORTISONE/PRAMOXINE 10 GM PR PRN (12:09)
[2018-05-11] MEDS: DOCUSATE SODIUM 100 MG CAPSULE PO SCH ×2 (00:29→08:17)
[2018-05-11] MEDS: IBUPROFEN 800 MG TABLET PO SCH ×2 (01:56→09:17)
[2018-05-11] MEDS: ACETAMINOPHEN 500 MG TABLET PO SCH (06:00)
[2018-05-11 07:49] VITALS: BP 118/68
--- NOTE | 2018-05-11 08:24 | Discharge Plan ---
Discharge Plan Disposition: 01 Home, Self Care Condition: Good Diet: Regular Activity Restrictions: No Restrictions Shower Restrictions: No Driving Restrictions: No No Smoking: If you smoke, Please STOP! Call for help. Follow-up with: Jennifer Vargas CNM, ARNP [Provider Admit Priv/Credential] -
--- NOTE | 2018-05-11 08:33 | PROVIDER PROGRESS NOTE ---
Subjective - Subjective Subjective: Final Progress Note: S: Bonding well with baby. without difficulty. Pain well controlled with ibuprofen and oxycodone. Bleeding decreased and is light. She feels well rested and states she was able to take frequent naps yesterday and had a good nights rest. Anxious to go home today. Feeling relaxed. O: BP 118/68, HR 78, RR16, T36.7. Heart RRR w/o M/G/R, lungs CTAB, abdomen soft and nontender with fundus firm at U-2. Bilateral LE's trace edema. A: 32yo -->P2 PPD#3 s/p TSVD of viable male infant s/p abx therapy w/ resolution of leukocytosis Remained afebrile x48 hours P: Discharge home today on day #3. Reviewed self care and warning signs. Rx handwritten and provided to patient for oxycodone 5mg #10 with 0 refills. Breast pump Rx was never picked up by the patient - new Rx provided. Advised ibuprofen 800mg q 8 hrs PRN pain and colace 100mg PO tid, PRN constipation. Pt plans to f/u with CNM at [facility] in 1 week for visit, in 3 weeks for routine visit, and in 8 weeks for annual well woman exam. Pt verbalized understanding and agrees to above plan. She denies further questions or concerns today. Objective - Vital Signs/Intake & Output Vital Signs: Vital Signs x48h Temp Pulse Resp BP Pulse Ox 05/11/18 07:48 36.7 C 78 16 118/68 100 05/11/18 04:07 36.6 C 73 16 106/55 L 100 Intake & Output: Intake & Output 05/08/18 05/09/18 05/10/18 05/11/18 23:59 23:59 23:59 23:59 Intake Total 2894.9 680 Output Total 4175 Balance -1280.1 680 - Lab Results Fish Bones: 05/08/18 13:00 05/07/18 22:15
--- NOTE | 2018-05-13 14:52 | DISCHARGE SUMMARY ---
Physician: MAGGY Beck DATE OF ADMISSION: 05/07/2018 DATE OF DISCHARGE: 05/11/2018 DIAGNOSES ON ADMISSION 1. A 32-year-old G2, P1-0-0-1 at 39 weeks' gestation. 2. Spontaneous rupture of membranes since 2100 hours on 05/06/2018. 3. Group B strep positive. DIAGNOSES ON DISCHARGE 1. A 32-year-old G2, P2-0-0-2, status post spontaneous vaginal delivery on . 2. Status post antibiotic therapy secondary to sudden desaturation and leukocytosis. 3. Afebrile x 48 hours. 4. Status post penicillin for group B strep prophylaxis. 5. Status post ampicillin 2 grams every 6 hours for 24 hours, and gentamicin 5 mg/kg x1. 6. Blood cultures negative, utility limited secondary to IV antibiotic therapy throughout the day today. 7. Placental pathology pending. HISTORY OF PRESENT ILLNESS: She is a patient of [facility] who presented on 05/07/2018 with complaints of leakage of fluid for greater than 12 hours, and failure to present for evaluation. She received penicillin for GBS prophylaxis. She received one dose of 50 mcg buccal misoprostol for augmentation, and entered active labor at 4 cm at 1600 hours. She spontaneously delivered a viable male in an SONAM position over a second-degree perineal laceration at 2113 hours, for a total second stage duration of 10 minutes, and total rupture duration of 24 hours 13 minutes. Afebrile throughout labor. Apgars were 9 and 9 at one and five minutes respectively. EBL 500 mL. The patient's second degree laceration was repaired with a 2-0 Vicryl in the usual fashion under sterile conditions. She has been doing well throughout her course. She is ambulating and tolerating a regular diet. She is urinating without difficulty, and her lochia is normal. Her pain is well controlled with oral medications. She will be discharged home today on day #3 with prescriptions for oxycodone 5 mg, and instructions to limit use, and take ibuprofen 800 mg p.o. 8 hours p.r.n. pain. She intends to follow up with myself at [facility] in one week for visit, and then in three weeks for routine visit. She has been given precautions to call if she has any worsening fevers, chills, abdominal pain, increased bleeding or foul smelling vaginal lochia. TD: 05/13/2018 12:05 LENIN
== END 2018-05-11 13:40 | disposition home or self-care (01) | DRG 774 ==
LOC: FBP 09:39 → WFO 09:39 → FBP 11:15
PROVIDERS: ADMIT Registered Nurse; ATTEND Nurse Practitioner Obstetrics & Gynecology
PROC: 10E0XZZ Delivery of Products of Conception, External Approach (ICD-10-PCS; principal; 2018-05-07)
PROC: 0KQM0ZZ Repair Perineum Muscle, Open Approach (ICD-10-PCS; 2018-05-07)
DX: O42.02 Full-term premature rupture of membranes, onset of labor within 24 hours of rupture (principal); O86.4 Pyrexia of unknown origin following delivery; O99.824 Streptococcus B carrier state complicating childbirth; O70.1 Second degree perineal laceration during delivery; O90.89 Other complications of the puerperium, not elsewhere classified; R06.09 Other forms of dyspnea; D72.829 Elevated white blood cell count, unspecified; O99.345 Other mental disorders complicating the puerperium; F41.9 Anxiety disorder, unspecified; Z3A.39 39 weeks gestation of pregnancy; Z37.0 Single live birth
CPT/HCPCS: 36415; 71250; 80053; 82803; 84112; 85025; 87040; 99213

== ENCOUNTER 2018-06-29 21:37 | Emergency (ER) | payer MEDICAID ==
[2018-06-29 22:28] LABS: MUDS CUTOFF CONCENTRATIONS CUTOFF CONC BELOW:
[2018-06-29 22:35] LABS: BILIRUBIN,URINE NEGATIVE (NEGATIVE); GLUCOSE, URINE (UA) NEGATIVE (NEGATIVE); KETONES,URINE (UA) NEGATIVE (NEGATIVE); LEUKOCYTE ESTERASE, URINE NEGATIVE (NEGATIVE); NITRITE,URINE NEGATIVE (NEGATIVE); OCCULT BLOOD,URINE SMALL (NEGATIVE); PH,URINE 6.5 PH (5.0-7.5); PROTEIN,URINE NEGATIVE (NEGATIVE); UROBILINOGEN,URINE 0.2 (NORMAL) E.U./dL (NORMAL)
[2018-06-29 22:40] LABS: BASOPHILS % (AUTO) 0.2 %; EOSINOPHILS % (AUTO) 0.3 %; HGB - HEMOGLOBIN 13.8 g/dL (12.0-16.0); LYMPHOCYTES % (AUTO) 26.7 %; MEAN CORPUSCULAR HGB CONC 33.7 g/dL (32.0-36.0); MEAN CORPUSCULAR VOLUME 88.9 fL (81.0-99.0); MEAN PLATELET VOLUME 7.8 fL (7.9-10.8); MONOCYTES # (AUTO) 0.6 10^3/uL (0.0-1.0); MONOCYTES % (AUTO) 8.2 %; NEUTROPHILS # (AUTO) 4.7 10^3/uL (1.5-6.6); NEUTROPHILS % (AUTO) 64.6 %; PLT - PLATELET COUNT 279 10^3/uL (130-450); RED CELL DISTRIBUTION WIDTH 12.6 % (12.0-15.0); WHITE BLOOD COUNT 7.3 x10^3/uL (4.8-10.8)
--- NOTE | 2018-06-29 22:52 | ED Physician Documentation ---
PD HPI MHE - Stated complaint Stated Complaint: POST ANXIETY - Chief complaint Chief Complaint: MHE - History obtained from History obtained from: Patient - History of Present Illness Primary symptom: Psychosis, Depression Timing - onset: Chronic Contributing factors: Family Similar symptoms before: No diagnosis Recently seen: Clinic - Additional information Additional information: Patient is a 33 year old female with a history of depression who is presenting to the emergency department for psychosis. 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 patient reports that she feels like she has brain cancer event though she does not have any symptoms. patient also reports suicidal thoughts and overwhelming fear and anxiety concerning her children. Review of Systems Ten Systems: 10 systems reviewed and negative Constitutional: denies: Fever, Chills Eyes: reports: Reviewed and negative Cardiac: denies: Chest pain / pressure, Palpitations Respiratory: denies: Dyspnea GI: denies: Nausea, Vomiting : denies: Dysuria, Frequency, Discharge, Vaginal bleeding Musculoskeletal: reports: Reviewed and negative Psychiatric: reports: Depressed, Suicidal, Delusions, Anxiety PD PAST MEDICAL HISTORY - Allergies Allergies/Adverse Reactions: Allergies Allergy/AdvReac Type Severity Reaction Status Date / Time iodine AdvReac Hives Verified 05/07/18 10:52 - Social History Smoking Status: Never smoker PD ED PE NORMAL - Vitals Vital signs reviewed: Yes - General General: Alert and oriented X 3 - HEENT HEENT: Atraumatic, PERRL - Neck Neck: Supple, no meningeal sign - Cardiac Cardiac: RRR - Respiratory Respiratory: No respiratory distress - Abdomen Abdomen: Soft - Derm Derm: Normal color, Warm and dry - Extremities Extremities: No deformity - Neuro Neuro: Alert and oriented X 3, No motor deficit, Normal speech PD ED PE EXPANDED - Psych Psych: Depressed, Suicidal (at times but no active plan), Anxious, Delusions Results - Vitals Vitals: Vital Signs - 24 hr 06/29/18 06/30/18 06/30/18 22:00 01:36 03:50 Temperature 36.2 C L 37.1 C Heart Rate 82 82 82 Respiratory 18 17 18 Rate Blood Pressure 122/73 133/96 H 144/75 H O2 Saturation 99 100 98 Oxygen O2 Source Room air - Labs Labs: Laboratory Tests 06/29/18 06/29/18 06/29/18 22:17 22:17 22:35 WBC RBC Hgb Hct MCV MCH MCHC RDW Plt Count MPV Neut # (Auto) Lymph # (Auto) [place] # (Auto) Eos # (Auto) Baso # (Auto) Absolute Nucleated RBC Nucleated RBC % Sodium 136 Potassium 3.8 Chloride 101 Carbon Dioxide 24 Anion Gap 11.0 BUN 12 Creatinine 0.8 Estimated GFR (MDRD) 82 L Glucose 109 H Calcium 9.5 Total Bilirubin 0.9 AST 21 ALT 26 Alkaline Phosphatase 88 Total Protein 7.7 Albumin 4.5 Globulin 3.2 Albumin/Globulin Ratio 1.4 Lipase 30 Urine Color YELLOW Urine Clarity CLEAR Urine pH 6.5 Ur Specific [place] <=1.005 Urine Protein NEGATIVE Urine Glucose (UA) NEGATIVE Urine Ketones NEGATIVE Urine Occult Blood SMALL H Urine Nitrite NEGATIVE Urine Bilirubin NEGATIVE Urine Urobilinogen 0.2 (NORMAL) Ur Leukocyte Esterase NEGATIVE Urine RBC None Seen Urine WBC 0-3 Ur Squamous Epith Cells RARE Squamous Urine Bacteria None Seen Ur Microscopic Review INDICATED Urine Culture Comments NOT INDICATED Urine HCG, Qual NEGATIVE Urine Opiates Screen NEGATIVE Ur Oxycodone Screen NEGATIVE Urine Methadone Screen NEGATIVE Ur Propoxyphene Screen NEGATIVE Ur Barbiturates Screen NEGATIVE Ur Tricyclics Screen NEGATIVE Ur Phencyclidine Scrn NEGATIVE Ur Amphetamine Screen NEGATIVE U Methamphetamines Scrn NEGATIVE U Benzodiazepines Scrn NEGATIVE Urine Cocaine Screen NEGATIVE U Cannabinoids Screen POSITIVE H Ethyl Alcohol < 5.0 06/29/18 22:35 WBC 7.3 RBC 4.60 Hgb 13.8 Hct 40.9 MCV 88.9 MCH 30.0 MCHC 33.7 RDW 12.6 Plt Count 279 MPV 7.8 L Neut # (Auto) 4.7 Lymph # (Auto) 2.0 [place] # (Auto) 0.6 Eos # (Auto) 0.0 Baso # (Auto) 0.0 Absolute Nucleated RBC 0.01 Nucleated RBC % 0.1 Sodium Potassium Chloride Carbon Dioxide Anion Gap BUN Creatinine Estimated GFR (MDRD) Glucose Calcium Total Bilirubin AST ALT Alkaline Phosphatase Total Protein Albumin Globulin Albumin/Globulin Ratio Lipase Urine Color Urine Clarity Urine pH Ur Specific [place] Urine Protein Urine Glucose (UA) Urine Ketones Urine Occult Blood Urine Nitrite Urine Bilirubin Urine Urobilinogen Ur Leukocyte Esterase Urine RBC Urine WBC Ur Squamous Epith Cells Urine Bacteria Ur Microscopic Review Urine Culture Comments Urine HCG, Qual Urine Opiates Screen Ur Oxycodone Screen Urine Methadone Screen Ur Propoxyphene Screen Ur Barbiturates Screen Ur Tricyclics Screen Ur Phencyclidine Scrn Ur Amphetamine Screen U Methamphetamines Scrn U Benzodiazepines Scrn Urine Cocaine Screen U Cannabinoids Screen Ethyl Alcohol PD MEDICAL DECISION MAKING - ED course Complexity details: reviewed old records, reviewed results, re-evaluated patient, considered differential, d/w patient, d/w family, d/w economics consultant ED course: patient was seen and examined at bedside. labs were drawn and urine was collected. Tele psych was consulted. After consultation case was discussed with the psychiatrist (see complete note) who recommended inpatient admission. Patient was agreeable to the plan. patient was treated with benadryl and ativan to help her sleep. While awaiting social work I was called into the room by the patient's sister. They stated that before they went for inpatient care they would like to talk with a psychiatrist in person. They (the patient and the sister) stated that she did take three edibles yesterday and had not been sleeping. They were in constant communication with the as well. Patient was not actively suicidal. Patient was stable for discharge with close outpatient follow up. - Sepsis Event Vital Signs: Vital Signs - 24 hr 06/29/18 06/30/18 06/30/18 22:00 01:36 03:50 Temperature 36.2 C L 37.1 C Heart Rate 82 82 82 Respiratory 18 17 18 Rate Blood Pressure 122/73 133/96 H 144/75 H O2 Saturation 99 100 98 Oxygen O2 Source Room air Departure - Departure Disposition: 01 Home, Self Care Clinical Impression: Bipolar disease during , antepartum Condition: Stable Instructions: ED Stress React, ED Manic Depression Follow-Up: Marleni Fernandez CNM, [employer] [Primary Care Provider] - 06/30/18 Comments: It is important that you follow up with the psychiatrist today. Your symptoms are likely multi-factorial including depression, lack of sleep and medication/substances. If you have any active psychosis or thoughts of hurting yourself you should return to the emergency department for further evaluation and care. Discharge Date/Time: 06/30/18 03:50
[2018-06-29 22:53] LABS: ALBUMIN 4.5 g/dL (3.2-5.5); ALBUMIN/GLOBULIN RATIO 1.4 (1.0-2.2); ALKALINE PHOSPHATASE 88 IU/L (42-121); ALT ALANINE AMINOTRANSFERASE 26 IU/L (10-60); AST ASPARTATE AMINOTRANSFERASE 21 IU/L (10-42); BILIRUBIN,TOTAL 0.9 mg/dL (0.2-1.0); BUN - BLOOD UREA NITROGEN 12 mg/dL (6-20); CALCIUM 9.5 mg/dL (8.5-10.3); CARBON DIOXIDE - CO2 24 mmol/L (21-32); CHLORIDE 101 mmol/L (101-111); CREATININE 0.8 mg/dL (0.4-1.0); GFR - MDRD 82 (>89); GLUCOSE 109 mg/dL (70-100); LIPASE 30 U/L (22-51); SODIUM 136 mmol/L (135-145); TOTAL PROTEIN 7.7 g/dL (6.7-8.2)
[2018-06-29 23:05] LABS: CLARITY,URINE CLEAR (CLEAR); HCG UR QUAL NEGATIVE
[2018-06-29 23:06] LABS: AMPHETAMINE SCREEN,URINE NEGATIVE (NEGATIVE); BACTERIA,URINE None Seen /HPF (None Seen); BENZODIAZEPINES SCREEN, URINE NEGATIVE (NEGATIVE); COCAINE SCREEN URINE NEGATIVE (NEGATIVE); METHADONE SCREEN, URINE NEGATIVE (NEGATIVE); METHAMPHETAMINES SCREEN, URINE NEGATIVE (NEGATIVE); OPIATE SCREEN, URINE NEGATIVE (NEGATIVE); OXYCODONE SCREEN, URINE NEGATIVE (NEGATIVE); PROPOXYPHENE SCREEN, URINE NEGATIVE (NEGATIVE); RBC,URINE None Seen /HPF (0-5); SQUAMOUS EPITHELIAL CELL,UR RARE Squamous (<= Few); TRICYCLIC ANTIDEPRESSANT,URINE NEGATIVE (NEGATIVE)
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
[2018-06-30] MEDS ORDERED: LORazepam 0.5 MG TABLET PO STA (01:22)
[2018-06-30] MEDS ORDERED: diphenhydrAMINE 25 MG CAPSULE PO STA (01:22)
[2018-06-30 03:56] VITALS: BP 144/75
== END 2018-06-30 03:50 | disposition home or self-care (01) ==
LOC: ED 21:37
DX: O99.345 Other mental disorders complicating the puerperium (principal); F31.9 Bipolar disorder, unspecified; Z81.8 Family history of other mental and behavioral disorders; Z91.5 Personal history of self-harm
CPT/HCPCS: 36415; 80053; 80306; 80320; 81001; 81025; 83690; 85025; 99283; A9270; G0426; Q3014; 81003; 87086

== ENCOUNTER 2020-05-09 12:19 | Outpatient (CLI) | payer MEDICAID ==
[2020-05-09 14:56] LABS: EOSINOPHILS # (AUTO) 0.2 10^3/uL (0.0-0.7); EOSINOPHILS % (AUTO) 4.3 %; HGB - HEMOGLOBIN 13.9 g/dL (12.0-16.0); LYMPHOCYTES # (AUTO) 1.5 10^3/uL (1.5-3.5); LYMPHOCYTES % (AUTO) 34.9 %; MEAN CORPUSCULAR HGB CONC 33.6 g/dL (32.0-36.0); MEAN CORPUSCULAR VOLUME 92.2 fL (81.0-99.0); MEAN PLATELET VOLUME 10.8 fL (7.9-10.8); MONOCYTES # (AUTO) 0.3 10^3/uL (0.0-1.0); MONOCYTES % (AUTO) 7.4 %; NEUTROPHILS # (AUTO) 2.2 10^3/uL (1.5-6.6); NEUTROPHILS % (AUTO) 52.2 %; PLT - PLATELET COUNT 264 10^3/uL (130-450); RED BLOOD COUNT 4.49 10^6/uL (4.20-5.40); RED CELL DISTRIBUTION WIDTH 11.7 % (12.0-15.0); WHITE BLOOD COUNT 4.2 x10^3/uL (4.8-10.8)
[2020-05-09 15:40] LABS: ALBUMIN 4.7 g/dL (3.2-5.5); ALBUMIN/GLOBULIN RATIO 1.6 (1.0-2.2); ALKALINE PHOSPHATASE 62 IU/L (42-121); ALT ALANINE AMINOTRANSFERASE 20 IU/L (10-60); AST ASPARTATE AMINOTRANSFERASE 18 IU/L (10-42); BILIRUBIN,TOTAL 0.8 mg/dL (0.2-1.0); BUN - BLOOD UREA NITROGEN 15 mg/dL (6-20); CALCIUM 9.2 mg/dL (8.5-10.3); CARBON DIOXIDE - CO2 25 mmol/L (21-32); CHLORIDE 103 mmol/L (101-111); CHOL/HDL RATIO 7.1 (<4.4); CHOLESTEROL 336 mg/dL; CREATININE 0.8 mg/dL (0.4-1.0); GLUCOSE 92 mg/dL (70-100); HDL CHOLESTEROL 47 mg/dL; LDL CHOLESTEROL,CALCULATED 229 mg/dL; LDL/HDL RATIO 4.9 (<4.4); SODIUM 137 mmol/L (135-145); TOTAL PROTEIN 7.7 g/dL (6.7-8.2); VLDL CHOLESTEROL 60 mg/dL
== END 2020-05-09 12:20 | disposition home or self-care (01) ==
LOC: LAB.S 12:19
PROVIDERS: ATTEND Registered Nurse
DX: F31.9 Bipolar disorder, unspecified (principal); F41.9 Anxiety disorder, unspecified; Z83.49 Family history of other endocrine, nutritional and metabolic diseases
CPT/HCPCS: 36415; 80053; 80061; 83721; 84443; 85025

== ENCOUNTER 2022-12-30 09:16 | Outpatient (CLI) | payer MEDICAID ==
[2022-12-30 14:43] LABS: BASOPHILS % (AUTO) 0.7 %; EOSINOPHILS # (AUTO) 0.3 10^3/uL (0.0-0.7); EOSINOPHILS % (AUTO) 4.8 %; HCT - HEMATOCRIT 42.3 % (37.0-47.0); HGB - HEMOGLOBIN 14.1 g/dL (12.0-16.0); LYMPHOCYTES # (AUTO) 1.8 10^3/uL (1.5-3.5); LYMPHOCYTES % (AUTO) 32.4 %; MEAN CORPUSCULAR HEMOGLOBIN 30.8 pg (27.0-31.0); MEAN CORPUSCULAR HGB CONC 33.3 g/dL (32.0-36.0); MEAN CORPUSCULAR VOLUME 92.4 fL (81.0-99.0); MONOCYTES # (AUTO) 0.4 10^3/uL (0.0-1.0); MONOCYTES % (AUTO) 6.2 %; NEUTROPHILS # (AUTO) 3.2 10^3/uL (1.5-6.6); NEUTROPHILS % (AUTO) 55.7 %; PLT - PLATELET COUNT 249 10^3/uL (130-450); RED BLOOD COUNT 4.58 10^6/uL (4.20-5.40); RED CELL DISTRIBUTION WIDTH 11.7 % (12.0-15.0); WHITE BLOOD COUNT 5.7 x10^3/uL (4.8-10.8)
[2022-12-30 15:32] LABS: ALBUMIN/GLOBULIN RATIO 1.3 (1.0-2.2); ALKALINE PHOSPHATASE 87 IU/L (42-121); ALT ALANINE AMINOTRANSFERASE 34 IU/L (10-60); AST ASPARTATE AMINOTRANSFERASE 26 IU/L (10-42); BUN - BLOOD UREA NITROGEN 11 mg/dL (6-20); CARBON DIOXIDE - CO2 26 mmol/L (21-32); CHLORIDE 103 mmol/L (101-111); CHOL/HDL RATIO 4.6 (<4.4); CHOLESTEROL 209 mg/dL; CREATININE 0.9 mg/dL (0.4-1.0); GFR - MDRD 70 (>89); GLUCOSE 108 mg/dL (70-100); HDL CHOLESTEROL 45 mg/dL; LDL CHOLESTEROL,CALCULATED 130 mg/dL; LDL/HDL RATIO 2.9 (<4.4); POTASSIUM 4.2 mmol/L (3.5-5.0); SODIUM 135 mmol/L (135-145); TOTAL PROTEIN 7.1 g/dL (6.7-8.2); TRIGLYCERIDES 169 mg/dL; VLDL CHOLESTEROL 34 mg/dL
[2022-12-30 15:55] LABS: THYROID STIMULATING HORMONE 1.19 uIU/mL (0.34-5.60)
== END 2022-12-30 09:17 | disposition home or self-care (01) ==
LOC: LAB.S 09:16
PROVIDERS: ATTEND Registered Nurse
DX: E78.5 Hyperlipidemia, unspecified (principal); Z79.899 Other long term (current) drug therapy; Z13.29 Encounter for screening for other suspected endocrine disorder; Z83.438 Family history of other disorder of lipoprotein metabolism and other lipidemia; Z13.0 Encounter for screening for diseases of the blood and blood-forming organs and certain disorders involving the immune mechanism
CPT/HCPCS: 36415; 80053; 80061; 83721; 84443; 85025

== ENCOUNTER 2023-10-14 10:11 | Outpatient (CLI) | payer MEDICAID ==
[2023-10-14 14:48] LABS: BILIRUBIN,URINE NEGATIVE (NEGATIVE); GLUCOSE, URINE (UA) NEGATIVE (NEGATIVE); KETONES,URINE (UA) NEGATIVE (NEGATIVE); LEUKOCYTE ESTERASE, URINE TRACE (NEGATIVE); NITRITE,URINE NEGATIVE (NEGATIVE); OCCULT BLOOD,URINE SMALL (NEGATIVE); PROTEIN,URINE NEGATIVE (NEGATIVE); UROBILINOGEN,URINE 0.2 (NORMAL) E.U./dL (NORMAL)
[2023-10-14 14:49] LABS: CLARITY,URINE SL. CLOUDY (CLEAR)
[2023-10-14 20:37] LABS: ESTIMATED AVERAGE GLUCOSE 105 mg/dL (70-100); HEMOGLOBIN A1c% 5.3 % (4.27-6.07)
== END 2023-10-14 10:12 | disposition home or self-care (01) ==
LOC: LAB.S 10:11
PROVIDERS: ATTEND Registered Nurse
DX: R73.9 Hyperglycemia, unspecified (principal)
CPT/HCPCS: 36415; 81003; 83036

== ENCOUNTER 2023-10-21 10:55 | Outpatient (CLI) | payer MEDICAID ==
[2023-10-21 15:31] LABS: BILIRUBIN,URINE NEGATIVE (NEGATIVE); GLUCOSE, URINE (UA) NEGATIVE (NEGATIVE); KETONES,URINE (UA) NEGATIVE (NEGATIVE); LEUKOCYTE ESTERASE, URINE SMALL (NEGATIVE); NITRITE,URINE NEGATIVE (NEGATIVE); OCCULT BLOOD,URINE NEGATIVE (NEGATIVE); PROTEIN,URINE NEGATIVE (NEGATIVE); UROBILINOGEN,URINE 0.2 (NORMAL) E.U./dL (NORMAL)
[2023-10-21 15:35] LABS: CLARITY,URINE CLEAR (CLEAR)
[2023-10-21 15:55] LABS: BACTERIA,URINE Few /HPF (None Seen); RBC,URINE None Seen /HPF (0-5); SQUAMOUS EPITHELIAL CELL,UR FEW Squamous (<= Few); WBC,URINE 0-3 /HPF (0-5)
== END 2023-10-21 10:56 | disposition home or self-care (01) ==
LOC: LAB.S 10:55
PROVIDERS: ATTEND Registered Nurse
DX: R35.0 Frequency of micturition (principal)
CPT/HCPCS: 81001; 87086

== ENCOUNTER 2023-12-21 08:00 | Outpatient (CLI) | payer MEDICAID | END 2023-12-21 23:59 | disposition home or self-care (01) | LOC: LAB.S 08:00 | PROVIDERS: ATTEND Physician Assistant Medical | DX: J02.9 Acute pharyngitis, unspecified (principal) | CPT/HCPCS: 87070 ==